=== PATIENT | male | born 1985 | race Hispanic/Latino ===

== ENCOUNTER 2021-08-30 09:00 | Emergency (ER) | payer SELFPAY ==
[2021-08-30] MEDS ORDERED: hydrOXYzine 25 MG TAB ONE (09:54)
[2021-08-30] MEDS ORDERED: Cephalexin 500 MG CAP ONE (09:54)
[2021-08-30] MEDS ORDERED: Dexamethasone 4 MG TAB ONE (09:54)
== END 2021-08-30 10:07 | disposition home or self-care (01) ==
LOC: MADERS 09:00
DX: L25.9 Unspecified contact dermatitis, unspecified cause (principal); L73.9 Follicular disorder, unspecified
CPT/HCPCS: 99282; J8540